=== PATIENT | female | born 1965 | race Caucasian/White ===

== ENCOUNTER 2019-08-05 16:24 | Emergency (ER) | payer SELFPAY ==
[~2019-08-05 16:24] MED LIST: SULF1TAB24 PO
[2019-08-05 16:32] VITALS: BP 150/84
--- NOTE | 2019-08-05 16:44 | PHYS DOC ---
Past Medical History Past Medical History: Fibromyalgia, Hypothyroid (YANASUSANA Smith APRN) Past Surgical History: Hysterectomy, Tonsillectomy, Tubal ligation, Other Additional Past Surgical Histo: oral, exploratory lap (JASPERSUSANA GWENDOLYN) Alcohol Use: None Drug Use: Methadone (JASPERSUSANA GWENDOLYN) Adult General Chief Complaint Chief Complaint: Congestion HPI HPI Patient is a 54 year old female with history of hypothyroidism, fibromyalgia, who presents to the ED today with cough and nasal congestion that began 2 weeks ago and has gotten worse over this weekend. Patient denies any fever. Has tried several [id number] decongestants with no relief. (SUSANA HUTCHINSON SENIOR ENERGY MARKET COORDINATOR) Review of Systems Review of Systems Constitutional: Denies fever or chills [] Eyes: Denies change in visual acuity, redness, or eye pain [] HENT: Reports nasal congestion, denies sore throat [] Respiratory: Reports cough, denies shortness of breath [] Cardiovascular: No additional information not addressed in HPI [] GI: Denies abdominal pain, nausea, vomiting, bloody stools or diarrhea [] : Denies dysuria or hematuria [] Musculoskeletal: Denies back pain or joint pain [] Integument: Denies rash or skin lesions [] Neurologic: Denies headache, focal weakness or sensory changes [] All other systems were reviewed and found to be within normal limits, except as documented in this note. (SUSANA HUTCHINSON GWENDOLYN) Allergies Allergies Allergies Coded Allergies Type Severity Reaction Last Updated Verified Penicillins Allergy Intermediate 03/07/16 Yes prochlorperazine Allergy Intermediate dystonic rx 03/07/16 Yes (TINA RÍOS DO) Physical Exam Physical Exam Constitutional: Well developed, well nourished, no acute distress, non-toxic appearance. [] HENT: Normocephalic, atraumatic, bilateral external ears normal, oropharynx moist, no oral exudates, patient sounds congested nasally. Moderate frontal and maxillary sinus tenderness on exam, boggy bilateral nasal turbinates. Eyes: PERRLA, EOMI, conjunctiva normal, no discharge. [] Neck: Normal range of motion, no tenderness, supple, no stridor. [] Cardiovascular:Heart rate regular rhythm, no murmur [] Lungs & Thorax: Bilateral breath sounds clear to auscultation [] Abdomen: Bowel sounds normal, soft, no tenderness, no masses, no pulsatile masses. [] Skin: Warm, dry, no erythema, no rash. [] Back: No tenderness, no CVA tenderness. [] Extremities: No tenderness, no cyanosis, no clubbing, ROM intact, no edema. [] Neurologic: Alert and oriented X 3, normal motor function, normal sensory function, no focal deficits noted. [] Psychologic: Affect normal, judgement normal, mood normal. [] (SUSANA HUTCHINSON APRN) Current Patient Data Vital Signs Vital Signs Date Time Temp Pulse Resp B/P (MAP) Pulse Ox O2 Delivery O2 Flow Rate FiO2 08/05/19 16:32 98.2 75 16 150/84 (106) 92 Room Air 98.2 (TINA RÍOS DO) EKG EKG [] (SUSANA HUTCHINSON APRN) Radiology/Procedures Radiology/Procedures []PROCEDURE: CHEST PA & LATERAL Chest radiograph 08/05/2019 4:36 PM INDICATION: Cough COMPARISON: None available TECHNIQUE: Frontal and lateral views of the chest are provided. FINDINGS: The cardiomediastinal silhouette is within normal limits. There are no pleural effusions. There is no pulmonary vascular congestion. There is no pneumothorax. The lungs are clear. Degenerative changes of the thoracic spine are noted. IMPRESSION: No acute cardiopulmonary process. Electronically signed by: Jason Mitchell MD (08/05/2019 5:16 PM) [facility] [id number] DICTATED and SIGNED BY: JASON MITCHELL MD DATE: 08/05/19 1716 (SUSANA HUTCHINSON APRN) Course & Med Decision Making Course & Med Decision Making Pertinent Labs and Imaging studies reviewed. (See chart for details) This is a 54-year-old female patient with symptoms of sinusitis and bronchitis. She's had congestion and a cough for 2 weeks that has gotten worse over this weekend. Chest x-ray is negative. Discharged with Augmentin and Flonase. Nasal rinse also recommended. Follow-up with primary care doctor in 1-2 weeks (SUSANA HUTCHINSON APRN) Dragon Disclaimer Dragon Disclaimer This electronic medical record was generated, in whole or in part, using a voice recognition dictation system. (SUSANA HUTCHINSON APRN) Departure Departure Impression: Primary Impression: Acute bronchitis Additional Impression: Acute sinusitis Disposition: HOME, SELF-CARE Condition: STABLE Referrals: NO PCP (PCP) follow up in 1-2 weeks Patient Instructions: Acute Bronchitis, Sinusitis Additional Instructions: You were evaluated in the emergency room for sinusitis and bronchitis. We put you on antibiotics ensure you complete them, take the rest of the prescribed medications as ordered. Follow-up with your own doctor in 1-2 weeks. Scripts Prednisone (PREDNISONE) 50 Mg Tablet 1 TAB PO DAILY, #5 TAB Prov: SUSANA HUTCHINSON APRN 08/05/19 Fluticasone Propionate (Flonase Allergy Relief) 9.9 Ml [place].susp 2 SPRAYS NS DAILY, #1 BOTTLE Prov: SUSANA HUTCHINSON APRN 08/05/19 Amoxicillin/Potassium Clav (AUGMENTIN 875-125 TABLET) 1 Each Tablet 1 TAB PO BID for 10 Days, #20 TAB 0 Refills Prov: SUSANA HUTCHINSON APRN 08/05/19 Attending Signature Attending Signature I have reviewed the PA/PRESS FEEDER BROOMCORN's note and plan of care. I was available for consultation as needed during the patient's visit in the emergency department. I agree with the clinical impression, plan, and disposition. (TINA RÍOS DO) Problem Qualifiers Primary Impression: Acute bronchitis Bronchitis organism: unspecified organism Qualified Codes: J20.9 - Acute bronchitis, unspecified Additional Impression: Acute sinusitis Sinusitis location: frontal Recurrence: not specified as recurrent Qualified Codes: J01.10 - Acute frontal sinusitis, unspecified SUSANA HUTCHINSON APRN Aug 05, 2019 16:44 TINA RÍOS DO Aug 06, 2019 11:05
--- NOTE | 2019-08-05 17:19 | RAD ---
Chest radiograph 08/05/2019 4:36 PM INDICATION: Cough COMPARISON: None available TECHNIQUE: Frontal and lateral views of the chest are provided. FINDINGS: The cardiomediastinal silhouette is within normal limits. There are no pleural effusions. There is no pulmonary vascular congestion. There is no pneumothorax. The lungs are clear. Degenerative changes of the thoracic spine are noted. IMPRESSION: No acute cardiopulmonary process. Electronically signed by: Wilda Reyna MD (08/05/2019 5:16 PM) [id number]
[2019-08-05] MEDS ORDERED: PRED50TA PO (17:28)
[2019-08-05] MEDS ORDERED: AMOX1TAB61 PO (17:28)
[2019-08-05] MEDS ORDERED: FLUT9.9S NS (17:28)
== END 2019-08-05 17:31 | disposition home or self-care (01) ==
LOC: ER 16:24
DX: J20.9 Acute bronchitis, unspecified (principal); J01.10 Acute frontal sinusitis, unspecified; J01.00 Acute maxillary sinusitis, unspecified; M79.7 Fibromyalgia; F11.20 Opioid dependence, uncomplicated; E03.9 Hypothyroidism, unspecified; Z90.710 Acquired absence of both cervix and uterus; Z90.89 Acquired absence of other organs; Z98.51 Tubal ligation status; Z98.890 Other specified postprocedural states; Z88.0 Allergy status to penicillin; Z88.8 Allergy status to other drugs, medicaments and biological substances
CPT/HCPCS: 71046; 99284